=== PATIENT | female | born 1980 | race African-American/Black ===

== ENCOUNTER 2020-01-18 18:19 | Emergency (ER) | payer OTHER ==
[2020-01-18 18:52] VITALS: BMI 36.3
--- NOTE | 2020-01-18 19:16 | PDOC ---
History of Present Illness - General Chief Complaint: Vaginal Bleeding Stated Complaint: MISCARRIAGE Time Seen by Provider: 01/18/20 19:06 History Source: Patient Exam Limitations: No Limitations - History of Present Illness Initial Comments: 01/18/20 19:16 Jolie Alfaro is a 39F presenting with fever and miscarriage. Patient is at 11 weeks this week, was evaluated by Hector RUBIN last week and given clean bill of health, complicated by intermittent bleeding controlled with progresterone and N/V with Reglan. Has bleeding and abd pain 4 days ago when lifting a chair, went to [facility] for eval, US showed subchorionic hematoma and UTI, send home on BID ABx and rest precautions. Saw PMD Arguello today, full eval, no further treatment necessary. Went home today and had miscarriage in shower, parts noted with bleeding, EMS called and brought to ED for further eval. Had bleeding, but no chest pain, N/V, diarrhea, urinary sx, not yet completed Abx. Has fever and KIM since miscarriage. Denies further bleeding or discharge. Was not sick yesterday. Currently feeling down 2/2 miscarriage and has mild abd pain with movement. Past [employer] history chlamydia infection treated with azithromycin, LEEP procedure with clean Pap smear since, no prior . Allergy to PCN, unknown reaction, was tested for allergies in PMD office No other PSH No meds taken Social alcohol none since , no drugs or tobacco Past History - Medical History Allergies/Adverse Reactions: Allergies Allergy/AdvReac Type Severity Reaction Status Date / Time peanut Allergy Verified 01/18/20 18:39 Penicillins Allergy Verified 01/18/20 18:39 shellfish derived Allergy Verified 01/18/20 18:39 Home Medications: Ambulatory Orders Ibuprofen [Motrin -] 600 mg PO TID #21 tablet 01/18/20 Misoprostol [Cytotec -] 200 mcg PO TID 3 Days #9 tablet 01/18/20 Cancer: (HPV) COPD: No - Psycho-Social/Smoking History Smoking History: Never smoked Have you smoked in the past 12 months: No Information on smoking cessation initiated: No - Substance Abuse Hx (Audit-C & DAST Scrn) How often the patient has a drink containing alcohol: Never Score: In Men: 4 or > Positive; In Women: 3 or > Positive: 0 Screen Result (Pos requires Nsg. Audit-10AR): Negative In the last yr the pt used illegal drug/Rx for NonMed reason: No Score: Yes response is considered Positive: 0 Screen Result (Positive result requires Nsg. DAST-10): Negative Review of Systems - Review of Systems Able to Perform ROS?: Yes Constitutional: Yes: Chills, Fever HEENTM: No: Symptoms Reported Respiratory: No: Cough, Shortness of Breath, Wheezing Cardiac (ROS): No: Symptoms Reported ABD/GI: No: Constipated, Diarrhea, Nausea, Poor Appetite, Poor Fluid Intake, Vomiting : No: Dysuria, Discharge, Hematuria, Incontinence Musculoskeletal: Yes: Back Pain Integumentary: No: Symptoms Reported Neurological: Yes: Headache. No: Paresthesia, Pre-Existing Deficit, Tremors, Weakness Psychiatric: Yes: Depression, Stressors Endocrine: No: Symptoms Reported Hematologic/Lymphatic: No: Symptoms Reported All Other Systems: Reviewed and Negative *Physical Exam - Vital Signs Last Vital Signs Temp Pulse Resp BP Pulse Ox 102.7 F H 117 H 20 125/73 99 01/18/20 18:33 01/18/20 18:33 01/18/20 18:33 01/18/20 18:33 01/18/20 18:33 - Physical Exam General Appearance: Yes: Nourished, Appropriately Dressed, Obese. No: Apparent Distress HEENT: positive: EOMI, MEGHAN, Normal ENT Inspection, Normal Voice, Symmetrical, Pharynx Normal, Photophobia, Scleral Icterus (R), Scleral Icterus (L), Hearing Grossly Normal. negative: Pharyngeal Erythema, Tonsillar Exudate, Tonsillar Erythema, Nasal Congestion Neck: positive: Trachea midline, Normal Thyroid, Supple. negative: Tender, Rigid, Decreased range of motion, Lymphadenopathy (R), Lymphadenopathy (L), Tender lateral, Tender midline Respiratory/Chest: positive: Lungs Clear, Normal Breath Sounds. negative: Chest Tender, Respiratory Distress, Accessory Muscle Use, Labored Respiration, Rapid RR, Crackles, Rales, Rhonchi, Stridor, Wheezing Cardiovascular: positive: Regular Rhythm, Tachycardia. negative: Edema, Murmur, Irregularly Irregular Female Pelvic Exam: positive: normal external exam, cervical os closed, normal adnexa, vaginal bleeding (mild), other (no clots, os open 3-4cm, view obstructed by blue structure, possible retained products still to be passed vs. placenta). negative: CMT, discharge, lesions, adnexal tenderness Gastrointestinal/Abdominal: positive: Normal Bowel Sounds, Flat, Soft, Organomegaly. negative: Tender, Pulsatile Mass, Guarding, Rebound, Hernia, Mass Musculoskeletal: positive: Normal Inspection. negative: CVA Tenderness, CVA Tenderness (R), CVA Tenderness (L) Extremity: positive: Normal Capillary Refill, Normal Inspection, Normal Range of Motion, Pelvis Stable. negative: Tender Integumentary: positive: Normal Color, Dry, Warm Neurologic: positive: piping engineer II-XII NML intact, Fully Oriented, Alert, Normal Mood/Affect, Normal Response, Motor Strength 11/15 ED Treatment Course - LABORATORY CBC & Chemistry Diagram: 01/18/20 19:47 01/18/20 19:47 Medical Decision Making - Medical Decision Making 01/18/20 20:51 Patient has PMH LEEP, subchorionic hematoma, and UTI presenting with miscarriage today of her first . Passed products at home, still has some products to pass in vaginal vault per vaginal exam, but no discharge or bleeding noted. VS shows fever and tachycardia, concerned for UTI vs. pyelo vs. infection. Evaluating via CBC, CMP, Beta quant, Coags, T/S, Blood cultures, UA/UC. Giving sepsis dose IVF and Ofrimev for presumed infectious etiology. Sending for TVUS for eval retained products. 01/18/20 20:55 Labs notable for: - WBX 11.1 - K 5.6 - Beta quant [id number] - UA 1+protein, 2+ ketones, 3+ blood, 1264 bacteria ECG shows sinus tachycardia with short NE 104 and prolonged QTc 602, inverted T waves in V3-V6, no other ischemic changes. Has been taking Reglan, unclear prior ECG. Pending US. 01/18/20 22:42 US shows thickened endometrium 3.2cm with retained products. Dr. Stanford consulted, recommends 400ug PO Cytotec now, with script for 200ug TID for 3 days and Motrin PRN. Stable for discharge home with HUMAN RESOURCES BENEFITS SPECIALIST f/u. 01/19/20 00:34 Patient taking Macrobid 100mg BID, advised to continue taking. Fever and tachycardia resolved. Work note given. Stable for d/c home with OBGYN f/u and Cytotec per Dr. Rashid. Discharge - Discharge Information Problems reviewed: Yes Clinical Impression/Diagnosis: Miscarriage UTI (urinary tract infection) Qualifiers: Urinary tract infection type: acute cystitis Hematuria presence: without hematuria Qualified Code(s): N30.00 - Acute cystitis without hematuria Condition: Stable Disposition: HOME - Additional Discharge Information Prescriptions: Misoprostol [Cytotec -] 200 mcg PO TID 3 Days #9 tablet Ibuprofen [Motrin -] 600 mg PO TID #21 tablet - Follow up/Referral Referrals: Deion Arguello [Primary Care Provider] - Shannon Dorsey MD [Staff Physician] - - Patient Discharge Instructions Patient Printed Discharge Instructions: DI for Miscarriage Additional Instructions: Today you were evaluated for a miscarriage. Remember, this is not your fault. We have evaluated you for infections and have no found anything significant. Please continue to take your antibiotics and Tylenol as needed for pain or fever. Please follow-up with an HUMAN RESOURCES BENEFITS SPECIALIST or the emergency room in 2 days for further evaluation of [place]. [place] [id number]. We are sending you home with a medication called Cytotec, which will help your body get rid of the rest of your and prevent infection, but you will have a lot of cramping and more bleeding later today, and this is normal. Take the Cytotec three times a day for 3 days, and Motrin as needed. If you experience worsening bleeding, pain, fever, chills, nausea, vomiting, or any other new or concerning symptoms, please return to the emergency room. - Post Discharge Activity Work/Back to School Note: Back to Work
[2020-01-18] MEDS ORDERED: SODIUM CHLORIDE 2,790 ML IV ONE (19:50)
--- NOTE | 2020-01-18 20:05 | PDOC ---
Documentation entered by Asya Izaguirre SCRIBE, acting as scribe for Gladys Orozco MD. Gladys Orozco MD: This documentation has been prepared by the Dmitriy cullen Brenda, SCRIBE, under my direction and personally reviewed by me in its entirety. I confirm that the documentation accurately reflects all work, treatment, procedures, and medical decision making performed by me. Attending Attestation - Resident Resident Name: Mendez Hussein - ED Attending Attestation I have performed the following: I have examined & evaluated the patient, The case was reviewed & discussed with the resident, I agree w/resident's findings & plan, Exceptions are as noted - HPI HPI: 01/18/20 19:44 The patient is a 39 year old female 11 weeks with no significant PMH who presents to the ED for evaluation of vaginal bleeding. She was found to have a 102.7 fever She was seen at another hospital this weekend for vaginal spotting and found to have UTI and subchorionic hematoma. Tonight she was taking a shower and passed the fetus. 01/18/20 19:52 01/18/20 20:01 - Physicial Exam PE: 01/18/20 20:03 wnwd 39 yo female p/w mild vaginal bleeding and fever head ncat neck supple lungs cta b/l cvs tachycardia abdomen nontender done by Dr Hussein skin warm and dry extremities no edema neuro axox3.ambulatory 01/18/20 23:07 - Medical Decision Making 01/18/20 23:03 vaginal bleeding minimal at this time [id number] pelvic US : no IUP but thickened endometrium ,concern for retained products of conception 01/18/20 23:[address] Dorsey and she recommended cytotec and follow up with lidder she has a UTI and was told to complete her antibiotics that she was already prescribed 01/18/20 23:19 imp UTI,miscarriage 01/18/20 23:47 Discharge - Discharge Information Problems reviewed: Yes Clinical Impression/Diagnosis: Miscarriage, UTI (urinary tract infection) Condition: Stable Disposition: HOME - Additional Discharge Information Prescriptions: Misoprostol [Cytotec -] 200 mcg PO TID 3 Days #9 tablet Ibuprofen [Motrin -] 600 mg PO TID #21 tablet - Follow up/Referral Referrals: Deion Arguello [Primary Care Provider] - Shannon Dorsey MD [Staff Physician] - - Patient Discharge Instructions Patient Printed Discharge Instructions: DI for Miscarriage Additional Instructions: Today you were evaluated for a miscarriage. Remember, this is not your fault. We have evaluated you for infections and have no found anything significant. Please continue to take your antibiotics and Tylenol as needed for pain or fever. Please follow-up with an FRUIT SHIPPER or the emergency room in 2 days for further evaluation of [place]. [place] [id number]. We are sending you home with a medication called Cytotec, which will help your body get rid of the rest of your and prevent infection, but you will have a lot of cramping and more bleeding later today, and this is normal. Take the Cytotec three times a day for 3 days, and Motrin as needed. If you experience worsening bleeding, pain, fever, chills, nausea, vomiting, or any other new or concerning symptoms, please return to the emergency room. - Post Discharge Activity
[2020-01-18 20:09] LABS: BASO % 0.3 % (0-2.0); HEMATOCRIT 34.4 % (32.4-45.2); HEMOGLOBIN 11.2 GM/dL (10.7-15.3); LYMPH % 8.9 % (8-40); MCH 28.3 pg (25.7-33.7); MCHC 32.6 g/dl (32.0-36.0); MEAN CELL VOLUME 86.6 fl (80-96); MONO % 3.8 % (3.8-10.2); PLATELET COUNT 234 K/MM3 (134-434); RBC 3.97 M/mm3 (3.60-5.2); RDW 13.7 % (11.6-15.6); WHITE BLOOD COUNT 11.1 K/mm3 (4.0-10.0)
[2020-01-18] MEDS ORDERED: ACETAMINOPHEN 1000 MG/100 ML VIAL (NON FORMULARY) IVPB ONE (20:12)
[2020-01-18] MEDS ORDERED: ACETAMINOPHEN INJECTION 100 ML IVPB ONE (20:29)
[2020-01-18 20:32] LABS: INR 1.16 (0.83-1.09); PROTHROMBIN TIME (PATIENT) 13.7 SEC (9.7-13.0)
[2020-01-18 20:34] LABS: EPI CELLS 15 /uL (0-25.1); HYALINE CASTS 2 /uL (0-3.1); PH,URINE 5.5 (5.0-8.0); URINE APPEARANCE CLOUDY; URINE BACTERIA 1264 /uL (0-1359); URINE BILIRUBIN NEGATIVE (NEGATIVE); URINE COLOR YELLOW; URINE GLUCOSE (UA) NEGATIVE (NEGATIVE); URINE KETONE 2+ (NEGATIVE); URINE LEUK ESTERASE 3+ (NEGATIVE); URINE NITRITE NEGATIVE (NEGATIVE); URINE PROTEIN 1+ (NEGATIVE); URINE RBC 738 /uL (0-23.9); URINE WBC 2036 /uL (0-25.8)
[2020-01-18 20:35] LABS: ACTIVATED PTT 28.4 SECONDS (25.2-36.5)
[2020-01-18 20:42] LABS: ALBUMIN 3.2 g/dl (3.4-5.0); BILIRUBIN,TOTAL 0.3 mg/dL (0.2-1); BLOOD UREA NITROGEN 9.4 mg/dL (7-18); CALCIUM 8.4 mg/dL (8.5-10.1); CREATININE 0.8 mg/dL (0.55-1.3); POTASSIUM 5.6 mmol/L (3.5-5.1)
[2020-01-19 00:18] VITALS: BP 111/82; PULSE 97; TEMP 99.3
[2020-01-19] MEDS ORDERED: MISOPROSTOL 100 MCG TABLET PO ONE ×2 (00:45→23:16)
[2020-01-19] MEDS ORDERED: MISOPROSTOL 100 MCG TABLET PO SCH (08:00)
--- NOTE | 2020-01-19 10:40 | EKG ---
Test Reason : Blood Pressure : / mmHG Vent. Rate : 120 BPM Atrial Rate : 120 BPM P-R Int : 104 ms QRS Dur : 080 ms QT Int : 426 ms P-R-T Axes : -06 046 047 degrees QTc Int : 602 ms SINUS TACHYCARDIA WITH SHORT NY T WAVE ABNORMALITY, CONSIDER INFERIOR ISCHEMIA T WAVE ABNORMALITY, CONSIDER ANTERIOR ISCHEMIA PROLONGED QT ABNORMAL ECG NO PREVIOUS ECGS AVAILABLE Confirmed by MD Galdino, Eric ([id number]) on 01/19/2020 10:40:17 AM Referred By: Confirmed By:Eric Ahmadi MD
== END 2020-01-19 00:36 | disposition home or self-care (01) ==
LOC: JER 18:19
PROC: 3E0337Z Introduction of Electrolytic and Water Balance Substance into Peripheral Vein, Percutaneous Approach (ICD-10-PCS; principal; 2020-01-18)
PROC: 3E033GC Introduction of Other Therapeutic Substance into Peripheral Vein, Percutaneous Approach (ICD-10-PCS; principal; 2020-01-18)
DX: O03.9 Complete or unspecified spontaneous abortion without complication (principal); O23.591 Infection of other part of genital tract in pregnancy, first trimester; Z3A.11 11 weeks gestation of pregnancy
CPT/HCPCS: 36415; 76817-TC; 80053; 81003; 84702; 85025; 85610; 85730; 86850; 86900; 86901; 87040; 87076; 87086; 93005; 93010; 99285-25; J0131; U0003